=== PATIENT | female | born 1990 | race Caucasian/White ===

== ENCOUNTER 2023-05-21 17:12 | Emergency (ER) | payer OTHER ==
[~2023-05-21] VITALS: Ht 154.9 cm; Wt 49.9 kg
[2023-05-21 17:21] VITALS: BP 147/100
== END 2023-05-21 18:41 | disposition home or self-care (01) ==
LOC: ER 17:12
DX: S53.402A Unspecified sprain of left elbow, initial encounter (principal); V49.50XA Passenger injured in collision with unspecified motor vehicles in traffic accident, initial encounter; Y92.410 Unspecified street and highway as the place of occurrence of the external cause
CPT/HCPCS: 73080; 99283-25

== ENCOUNTER 2024-02-02 20:56 | Emergency (ER) | payer OTHER ==
[~2024-02-02] VITALS: Ht 154.9 cm; Wt 52.2 kg
[2024-02-02 21:06] VITALS: BP 154/98
[2024-02-02] MEDS ORDERED: Acetamin/Butalbital/Caffeine Tab PO ONE (21:10)
[2024-02-02] MEDS ORDERED: ZEBUTAL 50-3251 EAC1 PO (23:29)
== END 2024-02-02 23:30 | disposition home or self-care (01) ==
LOC: ER 20:56
DX: R51.9 Headache, unspecified (principal); Z88.0 Allergy status to penicillin; Z88.2 Allergy status to sulfonamides; Z88.1 Allergy status to other antibiotic agents
CPT/HCPCS: 70450; 99284-25; A9270